=== PATIENT | male | born 1985 | race Caucasian/White ===

== ENCOUNTER → 2017-04-26 12:13 | Outpatient (CLI) | payer OTHER ==
[2015-03-13 06:23] VITALS: BMI 31.3
[~2017-04-26 12:13] MED LIST: HYDROCODON-ACE1 EAC7 PO
== END | disposition home or self-care (01) ==
LOC: D.CT 12:13
DX: R51 Headache (principal); R41.82 Altered mental status, unspecified; S00.93XA Contusion of unspecified part of head, initial encounter

== ENCOUNTER 2017-12-15 21:26 | Emergency (ER) | payer SELFPAY ==
[2015-03-13 06:23] VITALS: BMI 31.3
== END 2017-12-15 23:23 | disposition home or self-care (01) ==
LOC: D.ER 21:26
DX: S01.81XA Laceration without foreign body of other part of head, initial encounter (principal); W01.0XXA Fall on same level from slipping, tripping and stumbling without subsequent striking against object, initial encounter; Y93.89 Activity, other specified; Y92.89 Other specified places as the place of occurrence of the external cause; S09.90XA Unspecified injury of head, initial encounter; S01.01XA Laceration without foreign body of scalp, initial encounter; F17.200 Nicotine dependence, unspecified, uncomplicated

== ENCOUNTER 2017-12-18 00:36 | Emergency (ER) | payer SELFPAY ==
[2015-03-13 06:23] VITALS: BMI 31.3
== END 2017-12-18 00:50 | disposition left against medical advice (07) ==
LOC: D.ER 00:36
DX: S01.91XD Laceration without foreign body of unspecified part of head, subsequent encounter (principal); X58.XXXD Exposure to other specified factors, subsequent encounter; Y92.019 Unspecified place in single-family (private) house as the place of occurrence of the external cause

== ENCOUNTER 2017-12-18 01:20 | Emergency (ER) | payer SELFPAY ==
[2015-03-13 06:23] VITALS: BMI 31.3
== END 2017-12-18 01:58 | disposition home or self-care (01) ==
LOC: D.ER 01:20
DX: S01.91XD Laceration without foreign body of unspecified part of head, subsequent encounter (principal); L08.9 Local infection of the skin and subcutaneous tissue, unspecified; X58.XXXD Exposure to other specified factors, subsequent encounter; F17.200 Nicotine dependence, unspecified, uncomplicated

== ENCOUNTER 2017-12-23 23:55 | Emergency (ER) | payer SELFPAY ==
[2015-03-13 06:23] VITALS: BMI 31.3
== END 2017-12-24 01:16 | disposition home or self-care (01) ==
LOC: D.ER 23:55
DX: J11.1 Influenza due to unidentified influenza virus with other respiratory manifestations (principal); R53.1 Weakness; R53.83 Other fatigue; J02.9 Acute pharyngitis, unspecified; F17.200 Nicotine dependence, unspecified, uncomplicated

== ENCOUNTER 2018-01-06 15:22 | Emergency (ER) | payer SELFPAY ==
[2015-03-13 06:23] VITALS: BMI 31.3
[2018-01-06 15:44] LABS: BASOPHILS 0.2 % (0-2); EOSINOPHILS 0.4 % (0-7); HEMATOCRIT 51.9 % (42.0-54.0); IMMATURE GRANULOCYTES 0.3 % (0-5); LYMPHOCYTES 24.9 % (15-50); MCH 30.6 pg (26.0-34.0); MCHC 34.7 g/dL (31.0-37.0); MCV 88.1 fL (80.0-100.0); MEAN PLATELET VOLUME 11.3 fL (7.4-10.4); MONOCYTES 5.2 % (2-11); PLATELET COUNT 196 10x3/uL (130-400); RBC 5.89 10x6/uL (4.20-6.10); WBC 12.3 10x3/uL (4.8-10.8)
[2018-01-06 16:08] LABS: ALBUMIN 3.3 g/dL (3.4-5.0); ALKALINE PHOSPHATASE 105 U/L (46-116); ALT (SGPT) 36 U/L (10-68); BILIRUBIN - TOTAL 0.72 mg/dL (0.2-1.3); CALC OSMOLALITY 279 mosm/kg (275-300); CALCIUM 8.7 mg/dL (8.5-10.1); CARBON DIOXIDE 27.2 mmol/L (21.0-32.0); CHLORIDE - SERUM 106 mmol/L (98-107); CREATININE - SERUM 1.1 mg/dL (0.6-1.3); GLUCOSE 108 mg/dL (74-106); POTASSIUM - SERUM 3.8 mmol/L (3.5-5.1); PROTEIN - SERUM 6.4 g/dL (6.4-8.2); SODIUM 141 mmol/L (136-145); UREA NITROGEN 8 mg/dL (7-18); eGFR NON AFRICAN AMERICAN 82 mL/min (90-120)
[2018-01-06 17:01] LABS: COLOR DK YELLOW (YELLOW)
[2018-01-06 17:02] LABS: APPEARANCE CLEAR (CLEAR); BILIRUBIN NEGATIVE (NEGATIVE); GLUCOSE NEGATIVE (NEGATIVE); KETONE NEGATIVE (NEGATIVE); NITRITE NEGATIVE (NEGATIVE); PROTEIN NEGATIVE (NEGATIVE); UROBILINOGEN NORMAL (NORMAL)
[2018-01-06 17:04] LABS: EPITHELIAL CELLS 0-5 /hpf (0-5); WHITE CELLS - URINE OCC /hpf (0-5)
== END 2018-01-06 18:49 | disposition home or self-care (01) ==
LOC: D.ER 15:22
PROVIDERS: Emergency Medicine
DX: R10.9 Unspecified abdominal pain (principal)

== ENCOUNTER 2018-04-10 05:42 | Emergency (ER) | payer MEDICAID ==
[2015-03-13 06:23] VITALS: BMI 31.3
[2018-04-10 07:19] LABS: BASOPHILS 0.1 % (0-2); EOSINOPHILS 0.3 % (0-7); HEMATOCRIT 46.2 % (42.0-54.0); IMMATURE GRANULOCYTES 0.3 % (0-5); LYMPHOCYTES 21.5 % (15-50); MCH 30.3 pg (26.0-34.0); MCHC 34.6 g/dL (31.0-37.0); MCV 87.5 fL (80.0-100.0); MEAN PLATELET VOLUME 11.2 fL (7.4-10.4); MONOCYTES 5.9 % (2-11); NEUTROPHILS 71.9 % (40-80); PLATELET COUNT 165 10x3/uL (130-400); RBC 5.28 10x6/uL (4.20-6.10); RDW 12.9 % (11.5-14.5); WBC 15.2 10x3/uL (4.8-10.8)
[2018-04-10 07:37] LABS: UDS - AMPHET NEGATIVE QUAL (NEGATIVE); UDS - BARB NEGATIVE QUAL (NEGATIVE); UDS - BENZO NEGATIVE QUAL (NEGATIVE); UDS - COCAINE NEGATIVE QUAL (NEGATIVE); UDS - OPIATE NEGATIVE QUAL (NEGATIVE); UDS - PCP NEGATIVE QUAL (NEGATIVE); UDS - THC POSITIVE QUAL (NEGATIVE)
[2018-04-10 07:38] LABS: APPEARANCE CLEAR (CLEAR); BILIRUBIN NEGATIVE (NEGATIVE); COLOR YELLOW (YELLOW); GLUCOSE NEGATIVE (NEGATIVE); KETONE MODERATE mg/dL (NEGATIVE); NITRITE NEGATIVE (NEGATIVE); PROTEIN NEGATIVE (NEGATIVE); SPECIFIC GRAVITY 1.025 (1.005-1.020); UROBILINOGEN NORMAL (NORMAL)
[2018-04-10 07:44] LABS: ALBUMIN 3.3 g/dL (3.4-5.0); ANION GAP 12.7 mmol/L (8-16); BILIRUBIN - TOTAL 0.71 mg/dL (0.2-1.3); CALCIUM 8.8 mg/dL (8.5-10.1); CARBON DIOXIDE 24.3 mmol/L (21.0-32.0); CREATININE - SERUM 1.2 mg/dL (0.6-1.3); PROTEIN - SERUM 6.4 g/dL (6.4-8.2)
== END 2018-04-10 08:39 | disposition home or self-care (01) ==
LOC: D.ER 05:42
PROVIDERS: Family Medicine
DX: F32.9 Major depressive disorder, single episode, unspecified (principal); F63.81 Intermittent explosive disorder

== ENCOUNTER 2018-05-05 14:09 | Emergency (ER) | payer MEDICAID ==
[2018-05-05 14:16] VITALS: Ht 185.4 cm
[2018-05-05 15:24] LABS: BASOPHILS 0.2 % (0-2); EOSINOPHILS 0.3 % (0-7); HEMOGLOBIN 16.4 g/dL (13.5-17.5); IMMATURE GRANULOCYTES 0.9 % (0-5); LYMPHOCYTES 10.1 % (15-50); MCH 29.8 pg (26.0-34.0); MCHC 34.2 g/dL (31.0-37.0); MCV 87.3 fL (80.0-100.0); MEAN PLATELET VOLUME 11.1 fL (7.4-10.4); MONOCYTES 1.5 % (2-11); RDW 12.6 % (11.5-14.5)
[2018-05-05 15:38] LABS: ALBUMIN 3.8 g/dL (3.4-5.0); ANION GAP 14.2 mmol/L (8-16); BILIRUBIN - TOTAL 0.4 mg/dL (0.2-1.3); CALCIUM 9.7 mg/dL (8.5-10.1); CARBON DIOXIDE 24.1 mmol/L (21.0-32.0); CREATININE - SERUM 1.2 mg/dL (0.6-1.3); POTASSIUM - SERUM 4.3 mmol/L (3.5-5.1); PROTEIN - SERUM 6.9 g/dL (6.4-8.2)
[2018-05-05 15:42] LABS: PLATELET COUNT 211 10x3/uL (130-400)
[2018-05-05 15:49] LABS: APPEARANCE CLEAR (CLEAR); BILIRUBIN NEGATIVE (NEGATIVE); COLOR DK YELLOW (YELLOW); GLUCOSE NEGATIVE (NEGATIVE); KETONE NEGATIVE (NEGATIVE); NITRITE NEGATIVE (NEGATIVE); PROTEIN 1+ mg/dL (NEGATIVE); UROBILINOGEN NORMAL (NORMAL)
[2018-05-05 15:59] LABS: UDS - AMPHET NEGATIVE QUAL (NEGATIVE); UDS - BARB NEGATIVE QUAL (NEGATIVE); UDS - BENZO NEGATIVE QUAL (NEGATIVE); UDS - COCAINE NEGATIVE QUAL (NEGATIVE); UDS - OPIATE NEGATIVE QUAL (NEGATIVE); UDS - PCP NEGATIVE QUAL (NEGATIVE); UDS - THC POSITIVE QUAL (NEGATIVE)
[2018-05-05] MEDS ORDERED: DESERYL100 MG PO (18:38)
[2018-05-05 18:45] VITALS: BP 122/068
== END 2018-05-05 18:45 | disposition home or self-care (01) ==
LOC: D.ER 14:09
PROVIDERS: Family Medicine
DX: F32.9 Major depressive disorder, single episode, unspecified (principal); R45.851 Suicidal ideations; F17.200 Nicotine dependence, unspecified, uncomplicated

== ENCOUNTER 2018-12-06 20:57 | Emergency (ER) | payer MEDICAID ==
[~2018-12-06] VITALS: Ht 185.4 cm; Wt 122.7 kg
[~2018-12-06 20:57] MED LIST changes: +DESERYL100 MG PO
[2018-12-06 21:13] VITALS: BP 145/93; Ht 185.4 cm; Wt 122.7 kg
[2018-12-06] MEDS ORDERED: MUPIROCIN22 GM TOPICAL (23:21)
== END 2018-12-06 23:35 | disposition home or self-care (01) ==
LOC: D.ER 20:57
DX: S00.01XA Abrasion of scalp, initial encounter (principal); X58.XXXA Exposure to other specified factors, initial encounter; Y93.89 Activity, other specified; Y92.89 Other specified places as the place of occurrence of the external cause; F17.200 Nicotine dependence, unspecified, uncomplicated

== ENCOUNTER 2019-06-25 16:06 | Emergency (ER) | payer MEDICAID ==
[~2019-06-25] VITALS: Ht 185.4 cm; Wt 122.7 kg
[~2019-06-25 16:06] MED LIST changes: +MUPIROCIN22 GM TOPICAL
[2019-06-25 16:12] VITALS: Ht 185.4 cm; Wt 122.7 kg
[2019-06-25] MEDS ORDERED: MARIJUANA MEDICAL (16:14)
[2019-06-25] MEDS ORDERED: HYDROCODON-ACE1 EA10 (16:14)
[2019-06-25] MEDS ORDERED: ULTRAM50 MG (16:14)
[2019-06-25] MEDS ORDERED: BACLOFEN10 MG (16:15)
--- NOTE | 2019-06-25 17:50 | NUR ---
PT ASSESSMENT FINDING REPORTED TO DR. DECKER. DR. DECKER STATES PT IS A LOW RISK. NO FURTHER ORDERS AT THIS TIME. RESOURCES REVIEWED WITH PT AND HE VERBALIZES UNDERSTANDING.
[2019-06-25] MEDS ORDERED: IBUPROFEN600 MG PO (18:21)
[2019-06-25 18:37] VITALS: BP 127/77
== END 2019-06-25 18:37 | disposition home or self-care (01) ==
LOC: D.ER 16:06
DX: S60.222A Contusion of left hand, initial encounter (principal); Y04.2XXA Assault by strike against or bumped into by another person, initial encounter; Y93.89 Activity, other specified; Y92.89 Other specified places as the place of occurrence of the external cause; S00.81XA Abrasion of other part of head, initial encounter; S05.91XA Unspecified injury of right eye and orbit, initial encounter